=== PATIENT | male | born 1980 | race Caucasian/White ===

== ENCOUNTER 2016-09-19 19:24 | Outpatient (CLI) | payer OTHER | END 2016-09-19 19:25 | disposition critical access hospital (66) | LOC: EMS 19:24 | PROVIDERS: ATTEND Surgery | DX: R56.9 Unspecified convulsions (principal) | CPT/HCPCS: A0425; A0429 ==

== ENCOUNTER 2016-09-19 19:41 | Emergency (ER) | payer OTHER ==
[2016-09-19] MEDS ORDERED: ONDANSETRON 4 MG/2 ML VIAL ONE (19:48)
--- NOTE | 2016-09-19 19:54 | ED Physician Documentation ---
PD HPI SEIZURE - Stated complaint Stated Complaint: SEIZURE - Chief complaint Chief Complaint: Neuro - History obtained from History obtained from: Patient, Family (), EMS - History of Present Illness Witnessed: Witnessed (35-year-old gentleman, active duty in the [employer]. 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 He is maintained on Keppra , 500 mg twice a day. Tonight he was in the kitchen, and he mentioned seeing something to allow his and then proceeded to have a tonic-clonic seizure, he did hit his head on the left side opening up his craniotomy incision and bit his tongue on the right side. The patient is confused at this juncture.) Review of Systems Unable to obtain: Confused PD PAST MEDICAL HISTORY - Past Medical History Past Medical History: Yes Other Past Medical History: cavernous malformation - Past Surgical History Past Surgical History: No - Present Medications Home Medications: Ambulatory Orders Medication Instructions Recorded Confirmed Levetiracetam [Keppra] 500 mg PO BID 09/19/16 09/19/16 Levetiracetam [Keppra] 1,000 mg PO BID #60 tablet 09/20/16 - Allergies Allergies/Adverse Reactions: Allergies Allergy/AdvReac Type Severity Reaction Status Date / Time No Known Drug Allergies Allergy Verified 05/03/15 22:49 - Social History Does the pt smoke?: No Smoking Status: Former smoker PD ED PE NORMAL - Vitals Vital signs reviewed: Yes - General General: Other - HEENT HEENT: PERRL, EOMI, Other (Right-sided tongue lac, Left craci is dehisched a bit mid incision but explored, not deep and cleansed during eval. Does not need repair.) - Neck Neck: Supple, no meningeal sign, No bony TTP - Cardiac Cardiac: RRR, No murmur - Respiratory Respiratory: No respiratory distress, Clear bilaterally - Abdomen Abdomen: Normal bowel sounds, Soft, Non tender - Back Back: No CVA TTP, No spinal TTP - Derm Derm: Normal color - Extremities Extremities: No edema, No calf tenderness / cord, Other (TTP L upper humerus, but normal ROM) - Neuro Neuro: certified drug counselor 2-12 intact, No motor deficit, No sensory deficit, Normal speech - Psych Psych: Normal mood, Normal affect Results - Vitals Vitals: Vital Signs - 24 hr 09/19/16 09/19/16 09/19/16 19:42 20:03 20:55 Temperature 36.3 C L Heart Rate 92 86 80 Respiratory 16 16 16 Rate Blood Pressure 132/83 H 124/78 120/78 O2 Saturation 99 98 98 09/19/16 09/19/16 09/19/16 21:30 22:23 23:00 Temperature Heart Rate 77 77 76 Respiratory 16 18 16 Rate Blood Pressure 125/76 119/75 O2 Saturation 97 97 97 Oxygen O2 Source Room air - Labs Labs: Laboratory Tests 09/19/16 09/19/16 19:56 19:56 WBC 10.1 RBC 4.85 Hgb 14.6 Hct 42.6 MCV 87.8 MCH 30.1 MCHC 34.3 RDW 13.5 Plt Count 230 MPV 8.2 Neut # 5.9 Lymph # 3.2 [place] # 0.7 Eos # 0.3 Baso # 0.1 Absolute Nucleated RBC 0.01 Nucleated RBCs 0.0 Sodium 135 Potassium 3.7 Chloride 100 L Carbon Dioxide 20 L Anion Gap 15.0 H BUN 29 H Creatinine 1.2 Estimated GFR (MDRD) 69 L Glucose 167 H Calcium 9.6 Total Bilirubin 0.7 AST 24 ALT 26 Alkaline Phosphatase 62 Total Protein 8.1 Albumin 4.5 Globulin 3.6 Albumin/Globulin Ratio 1.3 Lipase 27 - Rads (name of study) L humerus Radiology: EMP read contemporaneously (Normal) CT head Radiology: EMP read contemporaneously (No acute process) PD MEDICAL DECISION MAKING - ED course ED course: 35-year-old gentleman with tonic-clonic seizure 4 weeks after intracranial surgery. He had a complete return to normal. No evidence of acute issue on head CT. After some delay I did speak with Dr. Flores, neurology at the [facility] who recommended doubling the dose of Keppra. He has an appointment this coming Thursday with them. Departure - Departure Disposition: 01 Home, Self Care Clinical Impression: Seizure Condition: Good Record reviewed to determine appropriate education?: Yes Instructions: ED Seizure Recurrent Prescriptions: Levetiracetam [Keppra] 1,000 mg PO BID #60 tablet Comments: Keep your appointment for this Thursday, the clinic may call you for sooner appointment, increasing your antiseizure medicine to 1 g twice a day, this is double the dose. A new prescription attached, or you can just take 2 of the pills you have twice a day.
[2016-09-19] MEDS ORDERED: ONDANSETRON 4 MG/2 ML VIAL IVP STA (20:00)
[2016-09-19 20:07] LABS: BASOPHILS # (AUTO) 0.1 10^3/uL (0.0-0.1); BASOPHILS % (AUTO) 0.9 %; EOSINOPHILS # (AUTO) 0.3 10^3/uL (0.0-0.7); EOSINOPHILS % (AUTO) 2.6 %; HCT - HEMATOCRIT 42.6 % (42.0-52.0); HGB - HEMOGLOBIN 14.6 g/dL (14.0-18.0); LYMPHOCYTES # (AUTO) 3.2 10^3/uL (1.5-3.5); MEAN CORPUSCULAR HEMOGLOBIN 30.1 pg (27.0-31.0); MEAN CORPUSCULAR HGB CONC 34.3 g/dL (32.0-36.0); MEAN CORPUSCULAR VOLUME 87.8 fL (80.0-94.0); MEAN PLATELET VOLUME 8.2 fL (7.4-11.4); MONOCYTES # (AUTO) 0.7 10^3/uL (0.0-1.0); MONOCYTES % (AUTO) 6.7 %; NEUTROPHILS # (AUTO) 5.9 10^3/uL (1.5-6.6); NEUTROPHILS % (AUTO) 57.8 %; RED BLOOD COUNT 4.85 10^6/uL (4.70-6.10); RED CELL DISTRIBUTION WIDTH 13.5 % (12.0-15.0); UNCORRECTED WHITE BLOOD COUNT 10.1 x10^3/uL; WHITE BLOOD COUNT 10.1 x10^3/uL (4.8-10.8)
[2016-09-19 20:20] LABS: ALBUMIN/GLOBULIN RATIO 1.3 (1.0-2.2); BILIRUBIN,TOTAL 0.7 mg/dL (0.2-1.0); CALCIUM 9.6 mg/dL (8.5-10.3); CREATININE 1.2 mg/dL (0.6-1.2); POTASSIUM 3.7 mmol/L (3.5-5.0); TOTAL PROTEIN 8.1 g/dL (6.7-8.2)
--- NOTE | 2016-09-19 22:32 | XRAY Preliminary Report ---
Exam: XR Humerus LT IMPRESSION: Normal humerus radiography. [facility] SITE ID: [id number]
--- NOTE | 2016-09-19 22:35 | XRAY Report ---
EXAM: LEFT HUMERUS RADIOGRAPHY EXAM DATE: 09/19/2016 10:10 PM. CLINICAL HISTORY: Injury, pain COMPARISON: None. TECHNIQUE: 2 views. FINDINGS: Bones: Normal. No fractures or bone lesions. Joints: Normal. No effusions or subluxations in the visualized shoulder or elbow joints. Soft Tissues: Normal. No soft tissue swelling. IMPRESSION: Normal humerus radiography. [facility] Referring Provider Line: [phone] SITE ID: [id number]
--- NOTE | 2016-09-19 22:45 | CT Preliminary Report ---
Exam: CT Head W/O IMPRESSION: 1. No acute intracranial process identified. 2. Left-sided craniotomy changes are present, consistent with the given clinical history of recent br ain surgery. [facility] SITE ID: [id number]
--- NOTE | 2016-09-19 22:48 | CT Report ---
EXAM: CT HEAD EXAM DATE: 09/19/2016 10:04 PM. CLINICAL HISTORY: Seizure, head injury. History of brain surgery 3 weeks ago. COMPARISON: None. TECHNIQUE: Multiaxial CT images were obtained from the foramen magnum to the vertex. IV contrast: Non e. Reformats: Coronal. In accordance with CT protocol optimization, one or more of the following dose reduction techniques w ere utilized for this exam: automated exposure control, adjustment of mA and/or KV based on patient s ize, or use of iterative reconstructive technique. FINDINGS: Parenchyma: No intraparenchymal hemorrhage. No evidence of mass, midline shift, or CT findings of inf arction. Crawley-white differentiation is distinct. Extraaxial Spaces: Normal for age. No subdural or epidural collections identified. Ventricles: The right lateral ventricle is larger than left but without midline shift, likely represe nting a normal variant for this patient. Sinuses: Imaged paranasal sinuses, orbits, and mastoids show no significant abnormality. Bones: Left sided craniotomy changes are present, consistent with the given clinical history of recen t brain surgery. IMPRESSION: 1. No acute intracranial process identified. 2. Left-sided craniotomy changes are present, consistent with the given clinical history of recent br ain surgery. [facility] Referring Provider Line: [phone] SITE ID: [id number]
[2016-09-20 00:27] VITALS: BP 122/74
== END 2016-09-20 00:50 | disposition home or self-care (01) ==
LOC: EDUNIT# → ED 19:41
DX: G40.909 Epilepsy, unspecified, not intractable, without status epilepticus (principal); Z98.890 Other specified postprocedural states; Q28.3 Other malformations of cerebral vessels
CPT/HCPCS: 36415; 70450; 80053; 83690; 85025; 96374; 99285

== ENCOUNTER 2018-04-09 07:55 | Outpatient (CLI) | payer OTHER ==
--- NOTE | 2018-04-09 18:51 | MRI Report ---
Reason: HEADACHE Procedure Date: 04/09/2018 Accession Number: [id number] / [id number] Procedure: MRI - Brain W/O CPT Code: FULL RESULT: EXAM: MRI BRAIN WITHOUT CONTRAST EXAM DATE: 04/09/2018 09:23 AM. CLINICAL HISTORY: Headache. History of cavernous venous malformation surgery. COMPARISON: CT head 09/19/2016. TECHNIQUE: Multiplanar, multisequence T1-weighted and fluid-sensitive MR sequences of the brain were performed. Sequences optimized for routine evaluation. Other: None. IV Contrast: None. FINDINGS: No cerebellar tonsillar ectopia is present. Age appropriate prominence of the ventricles and sulci is noted. No extraaxial fluid collection is present. There is an expected flow void in the major intracranial vessels at the skull base and in the superior sagittal sinus. There are a few punctate FLAIR hyperintensities in the cerebral hemisphere white matter bilaterally. There is a linear focus of susceptibility involving the inferior parietal lobe on the left. This appears to be centered on the sulcus. This is somewhat gyriform/linear in nature. In the anterior medial right frontal lobe there is a 6 mm focus of magnetic susceptibility which appears as a punctate T2 hypointense focus. No abnormal magnetic susceptibility is seen in the infratentorial brain. Scattered paranasal sinus mucosal thickening is present. Again seen is evidence of a prior parietal craniotomy on the left. IMPRESSION: 1. There is a focus of magnetic susceptibility in the paramedian right frontal lobe. This could reflect a low flow vascular lesion such as a cavernous malformation. A remote microhemorrhage from prior trauma or remote infarct with a hemorrhagic element are in the differential. 2. Gyriform/linear susceptibility in the left parietal lobe likely reflects hemosiderin staining from prior subarachnoid blood/surgery given the patient's history. 3. FLAIR hyperintensities in the cerebral hemisphere white matter bilaterally are nonspecific. Commonly, these are seen secondary to small vessel ischemic change or in association with certain headache syndromes. White matter lesions have been described in many other entities, including in demyelinating processes. No lesion typical of multiple sclerosis is identified on the current study. [facility]
== END 2018-04-09 07:56 | disposition home or self-care (01) ==
LOC: DI 07:55
DX: R51 Headache (principal)
CPT/HCPCS: 70551

== ENCOUNTER 2019-02-10 08:56 | Outpatient (CLI) | payer OTHER | END 2019-02-10 08:57 | disposition short-term general hospital (02) | LOC: EMS 08:56 | PROVIDERS: ATTEND Surgery | DX: S59.901A Unspecified injury of right elbow, initial encounter (principal); W17.89XA Other fall from one level to another, initial encounter; Y93.89 Activity, other specified; Y99.1 Military activity; Y92.139 Unspecified place military base as the place of occurrence of the external cause | CPT/HCPCS: A0425; A0427 ==

== ENCOUNTER 2020-05-29 16:07 | Outpatient (CLI) | payer OTHER ==
[2020-05-29 16:54] VITALS: BP 127/87
--- NOTE | 2020-05-29 16:54 | SLEEP CARE CONSULTATION ---
Information from patient questionnaire entered by Maksim Mcgregor. I have reviewed and concur with the information entered by Maksim Mcgregor. This document represents the service I personally performed and the decisions made by me, Josy Ramos ARNP. History of Present Illness Service Date and Time: 05/29/2020 1607 Reason for Visit: New patient Chief Complaint: reports: Unrefreshed sleep, Snoring, Excessive daytime sleepiness, Observed pauses in breathing ( has heard/seen him gasp at night but he doesn't awaken), Frequent awakenings at night Date of Onset: 5 years Usual bedtime: 9 PM Time it takes to fall asleep: 5-10 minutes Snores at night: Yes Observed to quit breathing while asleep: Yes Sleeps alone due to snoring: Yes Number of times waking at night: 3-5 times Reasons for waking at night: reports: Snoring, Bathroom Toss, Turn, or Twitch while sleeping: Yes Recalls having dreams: Yes Usually gets out of bed at: 430 AM (weekdays); 0800 on weekends Feels refreshed in the morning: No Morning headache: Yes (gone within hour, 3-4 days a week on average) Sleepy or fatigued during the day: Yes Ever fallen asleep while driving: No Takes day naps: Yes (10-15 minutes almost daily) Dreams during day naps: No Prior sleep studies: No Additional HPI information: I had the pleasure of seeing JASEN CHISHOLM today regarding the possibility of her having a sleep disorder. Her current complaints are unrefreshed sleep, snoring, observed pauses in breathing, excessive daytime sleepiness and frequent night awakenings. He states his sometimes has to sleep in another room due to his snoring. He has a history of seizures from a "blood lesion" that he had an operation on and has since not had another episode. - Parasomnia Symptoms Ever been unable to move upon waking from sleep: No Walks in sleep: No Talks in sleep: No Ever acted out dreams in sleep: No Ever felt weak in the knees when startled or emotional: No Bothered by creepy, crawly, restless sensations in legs: No Problems with memory or concentration: Yes (both, has to be in room that is quiet to concentrate and has to write down) Subjective Initial [place] Sleepiness Scale score: 18 (in 2020) Past Medical History Past Medical History: reports: Other (broken elbow; seizures 2017 from a blood lesion, had surgery -- still has headaches and memory loss/concentration issues) Social History The patient's occupation is a [employer]. Patient is Single and lives in [place]. Have you smoked in the past 12 months: Yes (on cigar in last year) Quit date: 2007 Alcohol use: Yes Alcohol amount and frequency: 1 a week on average Caffeine use: Yes Caffeine amount and frequency: 3-4 times a week Family History Family history of sleep disordered breathing: No Allergies and Home Medications Drug allergies reviewed: Yes (NKDA) Home medication list reviewed: Yes Allergy and home medication list: aspirin ibuprofen, prn for elbow pain/swelling Review of Systems Weight gain over past 5 years: 20 Cardiovascular: denies: high blood pressure Respiratory: reports: chronic cough Gastrointestinal: denies: heartburn Neurological: reports: headaches. denies: seizure (in past only) Psychiatric: denies: Attention Deficit Hyperactivity, anxiety, depression Ear/Nose/Throat: denies: nasal congestion, sinus problems, nose bleeds, dry mouth/throat, tonsillectomy, wisdom teeth removed Immunologic: reports: sneezing (runny nose). denies: allergies to food or environment Physical Exam Blood Pressure: 127/87 Cuff size: wrist Heart Rate: 67 O2 Saturation: 98 Height: 6 ft Weight: 234 lb Body Mass Index: 31.7 BMI Classification: Obese Neck circumference: 16.75 (inches) Nostrils: patent to airflow Mouth and throat: narrow oropharynx Soft palate: long Hard palate: normal Uvula visualization: 25% Mallampati Class III Tongue: enlarged in size with teeth harper on lateral edges Tonsils: 2+ Chin and jaw: normal size and position Neck: normal w/o lymphadenopathy or thyromegaly Heart: regular rate and rhythm Lungs: clear bilaterally Impression and Plan 1. Suspected Obstructive Sleep Apnea-Hypopnea Syndrome, as suggested by a history of loud and irregular snoring, observed cessation of breath while asleep, frequent night awakenings, gasping or choking in sleep, morning headache, unrefreshed sleep, cognitive impairment, and excessive daytime sleepiness. Narrow oropharynx and obesity are common predisposing factors for obstructive sleep apnea-hypopnea syndrome. I recommend proceeding to polysomnography to confirm the diagnosis and to assess severity. If the patient has significant sleep disordered breathing, a manual CPAP titration study will also be performed to find the optimal treatment pressure. I informed the patient of what the sleep studies involve and after some discussion, obtained agreement to proceed. The pathophysiology of obstructive sleep apnea-hypopnea syndrome was discussed with the patient and health risks of cardiovascular and cerebrovascular disease if not treated. Risks of drowsy driving discussed in detail and patient advised to avoid long distance driving and to pullboat engineer at the first sign of drowsiness. Patient agreed to plan. * Schedule polysomnography +- manual CPAP titration study and return in 1-2 weeks after the study to discuss result and initiate therapy. * Avoid long distance driving or driving when feeling sleepy. * Avoid alcohol, sedative and muscle relaxant around bedtime. * Attempt to lose weight. * Review instructions provided by trained office staff on how to prepare for the sleep study. * Return for follow-up after sleep study completed. Counseling Topics: Weight loss health impact Visit Type: In Office Time Spent with Patient (minutes): 32 Provider Statement: I spent 100% of the Face to Face Visit with the patient with greater than 50% spent counseling the patient and coordination of care.
== END 2020-05-29 16:08 | disposition home or self-care (01) ==
LOC: SC 16:07
PROVIDERS: ATTEND Nurse Practitioner Family
DX: G47.10 Hypersomnia, unspecified (principal); R06.83 Snoring; R06.81 Apnea, not elsewhere classified; G47.8 Other sleep disorders; R51.9 Headache, unspecified; R41.89 Other symptoms and signs involving cognitive functions and awareness; F17.290 Nicotine dependence, other tobacco product, uncomplicated; E66.9 Obesity, unspecified; Z68.31 Body mass index [BMI] 31.0-31.9, adult
CPT/HCPCS: 99203; 99212

== ENCOUNTER 2020-06-18 14:55 | Outpatient (CLI) | payer OTHER | END 2020-06-18 14:56 | disposition home or self-care (01) | LOC: SC 14:55 | PROVIDERS: ATTEND Nurse Practitioner Family | DX: G47.33 Obstructive sleep apnea (adult) (pediatric) (principal); R09.02 Hypoxemia; E66.3 Overweight; Z68.31 Body mass index [BMI] 31.0-31.9, adult | CPT/HCPCS: 95806 ==